=== PATIENT | female | born 1985 | race African-American/Black ===

== ENCOUNTER 2018-04-04 10:59 | Emergency (ER) | payer OTHER ==
[~2018-04-04] VITALS: Ht 167.6 cm; Wt 93.1 kg
[2018-04-04] MEDS ORDERED: MOTRIN400 MG PO (12:12)
[2018-04-04 12:48] VITALS: BP 137/94
== END 2018-04-04 12:45 | disposition home or self-care (01) ==
LOC: TRA 10:59
DX: S40.012A Contusion of left shoulder, initial encounter (principal); S60.212A Contusion of left wrist, initial encounter; S16.1XXA Strain of muscle, fascia and tendon at neck level, initial encounter; V43.52XA Car driver injured in collision with other type car in traffic accident, initial encounter; Y92.410 Unspecified street and highway as the place of occurrence of the external cause; F17.200 Nicotine dependence, unspecified, uncomplicated
CPT/HCPCS: 72050; 73030; 73130; 99281; 99283